=== PATIENT | female | born 1995 | race American Indian/Alaskan Native ===

== ENCOUNTER 2021-12-13 20:18 | Outpatient (CLI) | payer OTHER ==
[2021-12-14 01:40] LABS: Bilirubin,Urine NEG (Negative); Blood,Urine NEG (Negative); Color,Urine Yellow (Yellow); Protein,Urine <15 mg/dL mg/dL (Negative); Urobilinogen,Urine < 2.0 mg/dL (<2.0)
[2021-12-14 01:48] LABS: Mucus,Urine 1+ /HPF
== END 2021-12-13 22:55 | disposition home or self-care (01) ==
LOC: TRG 20:18 → APU 20:25 → TRG 22:55
PROVIDERS: ATTEND Obstetrics & Gynecology
DX: Z34.93 Encounter for supervision of normal pregnancy, unspecified, third trimester (principal); Z3A.38 38 weeks gestation of pregnancy
CPT/HCPCS: 81001

== ENCOUNTER 2021-12-24 19:45 | Outpatient (CLI) | payer OTHER ==
[2021-12-24 20:14] VITALS: BP 125/78
--- NOTE | 2021-12-24 23:10 | Ultrasound Report ---
ULTRASOUND OBSTETRIC INDICATION / CLINICAL INFORMATION: EFW, GREGORY, placental location, position. Clinical Gestational Age (GA) in weeks, days: 40, 6 TECHNIQUE: Transabdominal. COMPARISON: None available. FINDINGS: Single intrauterine . Biparietal Diameter = 9.1 cm = 37, 0 weeks, days Head Circumference = 32.9 cm = 37, 3 weeks, days Abdominal Circumference = 32.5 cm = 36, 3 weeks, days Femur Length = 7.0 cm = 35, 5 weeks, days Average Ultrasound Age (AUA) = 36, 5 weeks, days Heart Rate: 128 beats per minute. Estimated Weight in grams (if calculated): 2924 Estimated Weight Growth Percentile (if calculated): 4 Position: cephalic. Placenta: Grade 3 anterior and free of the os. Amniotic Fluid Volume: normal Amniotic Fluid Index (GREGORY) in cm (if calculated): 7.1. IMPRESSION: 1. Single, living intrauterine with estimated sonographic age of 36, 5 weeks, days. 2. Additional details as above Signer Name: Binh Spring DO Signed: 12/24/2021 11:05 PM Workstation Name: [id number]
== END 2021-12-24 22:45 | disposition home or self-care (01) ==
LOC: TRG 19:45 → APU 20:02 → TRG 22:45
PROVIDERS: ATTEND Obstetrics & Gynecology
DX: O47.03 False labor before 37 completed weeks of gestation, third trimester (principal); Z3A.36 36 weeks gestation of pregnancy
CPT/HCPCS: 76816